=== PATIENT | female | born 1945 | race African-American/Black ===

== ENCOUNTER 2024-01-14 15:07 | Inpatient (IN) | payer OTHER ==
[~2024-01-14] VITALS: Ht 152.4 cm; Wt 49.9 kg
[2024-01-14 15:10] VITALS: O2SAT 98
[2024-01-14] MEDS: CEFTRIAXONE 1GM/50ML 50 ML IV ONE (15:30)
[2024-01-14] MEDS: DILTIAZEM HCL 5MG/ML 5ML VIAL IV ONE (15:45)
[2024-01-14 16:39] LABS: HEMATOCRIT. 40.8 % (36.0-48.0); HEMOGLOBIN. 12.8 g/dL (12.0-16.0); MEAN CORPUSCULAR HEMOGLOBIN 28.3 pg (28.0-32.0); MEAN CORPUSCULAR HGB CONC 31.4 g/dL (31.0-37.0); MEAN CORPUSCULAR VOLUME 90.3 fL (81.0-99.0); PLATELET 56 x1000/uL (130-400); RED BLOOD CELL COUNT 4.52 mill/uL (4.2-5.4); RED CELL DISTRIBUTION WIDTH 17.8 % (11.6-14.6); WHITE BLOOD COUNT 8.6 x1000/uL (4.5-11.0)
[2024-01-14 16:42] LABS: DIFFERENTIAL COMMENT 1
[2024-01-14 16:49] LABS: CHLORIDE 109 mEq/L (98-107); POTASSIUM 4.1 mEq/L (3.5-5.1); SODIUM 138 mEq/L (136-145)
[2024-01-14 16:50] LABS: CALCIUM 8.8 mg/dL (8.7-10.4); CARBON DIOXIDE 21 mEq/L (21-32)
[2024-01-14 16:55] LABS: CREATININE 1.2 mg/dL (0.6-1.0); GLUCOSE 106 mg/dL (70-105); UREA NITROGEN BLOOD 34 mg/dL (9-23)
[2024-01-14 16:57] LABS: ALANINE AMINOTRANSFERASE 219 IU/L (10-49); ALBUMIN 2.7 g/dL (3.2-4.8); ASPARTATE AMINOTRANSFERASE 158 IU/L (<34); BILIRUBIN DIRECT 2.4 mg/dL (<=3.0); BILIRUBIN TOTAL 3.9 mg/dL (0.1-1.0); PROTEIN TOTAL 7.1 g/dL (6.0-8.3); TROPONIN I HIGH SENSITIVITY 23 ng/L (3.0-34)
[2024-01-14 17:07] LABS: INR 1.5; PROTHROMBIN TIME 16.5 sec (9.6-11.0)
[2024-01-14 18:36] LABS: ANISOCYTOSIS 1+; PLATELET ESTIMATE DECREASED
[2024-01-14] MEDS: FENTANYL CITRATE/PF 50MCG/ML 2ML VIAL IV NR (20:19)
[2024-01-14] MEDS ORDERED: CEFTRIAXONE 1GM/50ML 50 ML IV ONE (21:00)
[2024-01-14 21:44] LABS: LACTIC ACID 2.4 mmol/L (0.4-2.0); PHOSPHORUS 3.3 mg/dL (2.5-4.9)
[2024-01-14] MEDS: CALCIUM GLUCONATE 1GM PREMIX 50 ML IV NR (21:44)
[2024-01-14] MEDS: SODIUM CHLORIDE 0.9% 1000ML BAG (SEPSIS BOLUS) IV NR (21:49)
[2024-01-14] MEDS: VANCOMYCIN 1G PREMIX 200 ML IV NR (22:15)
[2024-01-14] MEDS: IOHEXOL-300 100 ML BOTTLE ONE (23:13)
[2024-01-14] MEDS: DOXYCYCLINE 100MG/100ML 100 ML IV SCH (23:29)
[2024-01-15 09:04] VITALS: BP_SYST 116; BP_DIAS 80; BP_DIAS 90; PULSE 75; RESP 18; TEMP 36.72516; TEMP 36.7516; O2SAT 98
[2024-01-15] MEDS ORDERED: SODIUM BICARBONATE 4% 2.4MEQ/5ML VIAL IV ONE (11:33)
[2024-01-15] MEDS ORDERED: LIDOCAINE HCL 1% 10 MG/ML 10ML VIAL ONE (11:34)
[2024-01-15 12:00] VITALS: BP 132/73; PULSE 66; RESP 20; TEMP 36.61404; O2SAT 96
[2024-01-15 16:00] VITALS: BP 137/98; PULSE 72; RESP 17; TEMP 37.05852; O2SAT 100
[2024-01-15] MEDS ORDERED: ACETAMINOPHEN 325MG TABLET PO PRN (16:15)
[2024-01-15] MEDS ORDERED: IPRATROPIUM/ALBUTEROL 0.5-3(2.5)MG/3ML NEB HHN PRN (16:15)
[2024-01-15] MEDS ORDERED: ONDANSETRON HCL 4MG/2ML INJ IV PRN (16:15)
[2024-01-15] MEDS: CEFTRIAXONE 2GM/50ML 50 ML IV SCH (17:53)
[2024-01-15] MEDS: DEXT 5%/0.45% NACL 1000ML 1,000 ML IV SCH (17:53)
[2024-01-15] MEDS: PANTOPRAZOLE SODIUM 40 MG/VIAL IV SCH (17:54)
[2024-01-15 18:24] LABS: HEMATOCRIT. 35.4 % (36.0-48.0); MEAN CORPUSCULAR HEMOGLOBIN 27.5 pg (28.0-32.0); MEAN CORPUSCULAR VOLUME 88.6 fL (81.0-99.0); MEAN PLATELET VOLUME 9.6 fl (7.4-10.4); PLATELET 56 x1000/uL (130-400); RED CELL DISTRIBUTION WIDTH 17.6 % (11.6-14.6)
[2024-01-15 18:26] LABS: CHLORIDE 109 mEq/L (98-107); SODIUM 139 mEq/L (136-145)
[2024-01-15 18:27] LABS: CALCIUM 8.8 mg/dL (8.7-10.4); CARBON DIOXIDE 21 mEq/L (21-32)
[2024-01-15 18:30] LABS: DIFFERENTIAL COMMENT 1
[2024-01-15 18:32] LABS: CREATININE 1.2 mg/dL (0.6-1.0); GLUCOSE 101 mg/dL (70-105); UREA NITROGEN BLOOD 41 mg/dL (9-23)
[2024-01-15 18:33] LABS: ALANINE AMINOTRANSFERASE 145 IU/L (10-49); AMMONIA 20 uMol/L (<32)
[2024-01-15 18:34] LABS: ALBUMIN 2.5 g/dL (3.2-4.8); ASPARTATE AMINOTRANSFERASE 86 IU/L (<34); BILIRUBIN TOTAL 3.2 mg/dL (0.1-1.0); PROTEIN TOTAL 6.3 g/dL (6.0-8.3)
[2024-01-15 18:48] LABS: HEPATITIS B SURFACE ANTIGEN NEGATIVE (Negative)
[2024-01-15] MEDS: ALBUMIN HUMAN 25GM/100ML (25%) IV NR (19:01)
[2024-01-15 19:09] LABS: HEPATITIS A AB IGM NEGATIVE (Negative)
[2024-01-15 19:10] LABS: ANISOCYTOSIS 1+; HEPATITIS B CORE AB IGM NEGATIVE (Negative); HEPATITIS C AB REACTIVE (Pos) (Negative); PLATELET ESTIMATE DECREASED
[2024-01-15 20:00] VITALS: BP 134/87; PULSE 61; RESP 19; TEMP 35.78064; O2SAT 98
[2024-01-16] VITALS: BP 126/82; PULSE 70; RESP 18; TEMP 35.66952; O2SAT 97
[2024-01-16 00:48] LABS: CREATINE KINASE MB FRACTION 3.2 ng/mL (0.5-3.6)
[2024-01-16 04:00] VITALS: BP 145/72; PULSE 69; RESP 16; TEMP 35.78064; O2SAT 96
[2024-01-16 07:28] LABS: CHLORIDE 108 mEq/L (98-107); POTASSIUM 4.4 mEq/L (3.5-5.1); SODIUM 140 mEq/L (136-145)
[2024-01-16 07:29] LABS: CALCIUM 8.9 mg/dL (8.7-10.4); CARBON DIOXIDE 22 mEq/L (21-32)
[2024-01-16 07:34] LABS: CREATININE 1.3 mg/dL (0.6-1.0); GLUCOSE 115 mg/dL (70-105)
[2024-01-16 07:35] LABS: UREA NITROGEN BLOOD 44 mg/dL (9-23)
[2024-01-16 07:36] LABS: ALANINE AMINOTRANSFERASE 117 IU/L (10-49); ALBUMIN 2.9 g/dL (3.2-4.8); ASPARTATE AMINOTRANSFERASE 65 IU/L (<34)
[2024-01-16 07:37] LABS: BILIRUBIN TOTAL 2.9 mg/dL (0.1-1.0); CREATINE KINASE MB FRACTION 3.2 ng/mL (0.5-3.6); PROTEIN TOTAL 6.4 g/dL (6.0-8.3)
[2024-01-16 07:41] LABS: T4 FREE 0.69 ng/dL (0.89-1.76); THYROID STIMULATING HORMONE 0.46 uIU/mL (0.55-4.78)
[2024-01-16 08:00] VITALS: BP 122/86; PULSE 72; RESP 19; TEMP 36.05844; O2SAT 96
[2024-01-16 08:04] LABS: HEMATOCRIT. 34.4 % (36.0-48.0); HEMOGLOBIN. 10.8 g/dL (12.0-16.0); MEAN CORPUSCULAR HEMOGLOBIN 27.8 pg (28.0-32.0); MEAN CORPUSCULAR HGB CONC 31.3 g/dL (31.0-37.0); MEAN CORPUSCULAR VOLUME 88.8 fL (81.0-99.0); MEAN PLATELET VOLUME 10.2 fl (7.4-10.4); RED BLOOD CELL COUNT 3.87 mill/uL (4.2-5.4); RED CELL DISTRIBUTION WIDTH 17.7 % (11.6-14.6); WHITE BLOOD COUNT 8.5 x1000/uL (4.5-11.0)
[2024-01-16 08:14] LABS: DIFFERENTIAL COMMENT 1
[2024-01-16 08:15] LABS: PLATELET 50 x1000/uL (130-400)
[2024-01-16 12:00] VITALS: BP 144/71; PULSE 67; RESP 19; TEMP 36.6696; O2SAT 96
[2024-01-16 16:00] VITALS: BP 151/70; PULSE 94; RESP 18; TEMP 36.16956; O2SAT 96
[2024-01-16] MEDS: HYDROCODONE/ACETAMINOPHEN 5/325MG TABLET PO PRN (16:17)
[2024-01-16 17:07] LABS: ANISOCYTOSIS 1+; PLATELET ESTIMATE MARKEDLY DECREASED
[2024-01-16 20:00] VITALS: BP 121/57; PULSE 101; RESP 20; TEMP 36.50292; O2SAT 99
[2024-01-17] VITALS (67 sets, daily range): BP systolic 32–132; BP diastolic 13–73; PULSE 66–141; RESP 9–21; TEMP 35.5584–36.55848; O2SAT 53–100
[2024-01-17] MEDS: SODIUM CHLORIDE 0.9% 500 ML IV ONE (09:23)
[2024-01-17 09:45] LABS: BG BASE EXCESS -24.5 mmol/L (-2.0-3.0); BG CARBOXYHEMOGLOBIN 0.3 % (0.5-1.5); BG DEOXYHEMOGLOBIN 0.3 % (0.0-5.0); BG FRACTION INSPIRED OXYGEN 80; BG HCO3 ACT 4.2 mmol/L (21.0-28.0); BG METHEMOGLOBIN 0.3 % (0.5-1.5); BG OXYGEN SATURATION 99.7 % (94.0-98.0); BG OXYHEMOGLOBIN 99.1 % (94.0-98.0); BG PCO2 16.1 mmHg (32.0-45.0); BG PH 7.038 (7.350-7.450); BG PO2 434.9 mmHg (83.0-108.0); BG SAMPLE SITE LEFT BRACHIAL; BG TOTAL HEMOGLOBIN 10.2 g/dL (12.0-16.0); BG VENT MODE MASK -PARTIAL NRB
[2024-01-17] MEDS: SODIUM BICARBONATE 8.4% 50MEQ/50ML SYR IV NR ×3 (10:25→13:44)
[2024-01-17] MEDS ORDERED: MIDAZOLAM HCL 2 MG/2 ML VIAL IV NR (10:30)
[2024-01-17] MEDS: PHENYLEPHRINE 50MG/250ML PMX 250 ML IV PRN (12:06)
[2024-01-17] MEDS: NOREPINEPHRINE 8MG/250ML PMX 250 ML IV PRN (12:06)
[2024-01-17] MEDS: EPINEPHRINE 10 MG in SODIUM CHLORIDE 0.9% 240 ML IV PRN (12:07)
[2024-01-17] MEDS: VASOPRESSIN 20 UNIT in SODIUM CHLORIDE 0.9% 99 ML IV PRN (12:40)
[2024-01-17 13:01] LABS: BG BASE EXCESS -25.1 mmol/L (-2.0-3.0); BG CARBOXYHEMOGLOBIN 0.2 % (0.5-1.5); BG DEOXYHEMOGLOBIN 31.7 % (0.0-5.0); BG FRACTION INSPIRED OXYGEN 100; BG HCO3 ACT 6.3 mmol/L (21.0-28.0); BG METHEMOGLOBIN 0.3 % (0.5-1.5); BG OXYGEN SATURATION 68.1 % (94.0-98.0); BG OXYHEMOGLOBIN 67.8 % (94.0-98.0); BG PCO2 33.2 mmHg (32.0-45.0); BG PH 6.899 (7.350-7.450); BG PO2 52.4 mmHg (83.0-108.0); BG SAMPLE SITE LEFT BRACHIAL; BG TOTAL HEMOGLOBIN 8.7 g/dL (12.0-16.0); BG VENT MODE VENT - AC
[2024-01-17] MEDS: DOPAMINE 400MG/250ML PREMIX 250 ML IV PRN (13:52)
[2024-01-17] MEDS: NOREPINEPHRINE 32 MG in DEXT 5% WATER 218 ML IV PRN (17:45)
[2024-01-17] MEDS: DEXTROSE 50% WATER 50ML SYRINGE IV PRN (17:45)
[2024-01-17 19:06] LABS: CHLORIDE 111 mEq/L (98-107); SODIUM 142 mEq/L (136-145)
[2024-01-17 19:07] LABS: CALCIUM 6.2 mg/dL (8.7-10.4)
[2024-01-17 19:12] LABS: UREA NITROGEN BLOOD 48 mg/dL (9-23)
[2024-01-17 19:17] LABS: CARBON DIOXIDE < 10 mEq/L (21-32); GLUCOSE 583 mg/dL (70-105); POTASSIUM 8.5 mEq/L (3.5-5.1)
[2024-01-17 19:26] LABS: HEMATOCRIT 10.6 % (36.0-48.0); HEMOGLOBIN 2.8 g/dL (12.0-16.0)
[2024-01-18] MEDS ORDERED: LEVOTHYROXINE SODIUM 25MCG TABLET PO SCH (06:40)
== END 2024-01-17 23:12 | DRG 432 ==
LOC: ER 15:07 → EDBEDREQ 20:16 → EDBEDREQTM 20:16 → 5WST 01-15 00:47 → 7WST 01-15 08:39 → 5WST 01-15 08:41 → 7EST 01-15 09:06 → CVICU 01-17 09:50
PROVIDERS: ADMIT Internal Medicine; ATTEND Internal Medicine
PROC: 5A2204Z Restoration of Cardiac Rhythm, Single (ICD-10-PCS; 2024-01-14)
PROC: 0W9G3ZZ Drainage of Peritoneal Cavity, Percutaneous Approach (ICD-10-PCS; 2024-01-15)
PROC: 5A1935Z Respiratory Ventilation, Less than 24 Consecutive Hours (ICD-10-PCS; principal; 2024-01-17)
PROC: 0BH17EZ Insertion of Endotracheal Airway into Trachea, Via Natural or Artificial Opening (ICD-10-PCS; 2024-01-17)
PROC: 06HY33Z Insertion of Infusion Device into Lower Vein, Percutaneous Approach (ICD-10-PCS; 2024-01-17)
DX: K70.31 Alcoholic cirrhosis of liver with ascites (principal); I81 Portal vein thrombosis; D68.9 Coagulation defect, unspecified; N17.9 Acute kidney failure, unspecified; J90 Pleural effusion, not elsewhere classified; I48.20 Chronic atrial fibrillation, unspecified; I82.413 Acute embolism and thrombosis of femoral vein, bilateral; I46.9 Cardiac arrest, cause unspecified; D69.59 Other secondary thrombocytopenia; I86.8 Varicose veins of other specified sites; B19.20 Unspecified viral hepatitis C without hepatic coma; K82.8 Other specified diseases of gallbladder; F03.90 Unspecified dementia, unspecified severity, without behavioral disturbance, psychotic disturbance, mood disturbance, and anxiety; I10 Essential (primary) hypertension; I86.4 Gastric varices; L30.8 Other specified dermatitis; D69.6 Thrombocytopenia, unspecified
CPT/HCPCS: 36415; 36600; 49083; 71045; 74177; 76700; 80048; 80053; 80076; 82105; 82140; 82375; 82378; 82533; 82550; 82553; 82805; 82962; 83605; 83735; 84100; 84145; 84439; 84443; 84484; 85014; 85018; 85025; 86705; 86709; 87340; 93005; 93970; 99291; C1893; J0610; J0696; J1265; J2470; J3010; J3370; J3490; J7050; J7060; P9047; Q9967